=== PATIENT | male | born 1985 | race Caucasian/White ===

== ENCOUNTER 2016-09-29 14:41 | Emergency (ER) | payer OTHER ==
[~2016-09-29] VITALS: Ht 188 cm; Wt 79.4 kg
[2016-09-29 14:43] VITALS: BP 116/80
== END 2016-09-29 16:10 | disposition left against medical advice (07) ==
LOC: ER 14:41
DX: M79.671 Pain in right foot (principal); M79.672 Pain in left foot; J45.909 Unspecified asthma, uncomplicated; F20.9 Schizophrenia, unspecified; F17.210 Nicotine dependence, cigarettes, uncomplicated; W17.89XA Other fall from one level to another, initial encounter; Y93.89 Activity, other specified; Y92.89 Other specified places as the place of occurrence of the external cause; Y99.9 Unspecified external cause status